=== PATIENT | female | born 1965 | race Asian ===

== ENCOUNTER 2016-10-31 12:33 | Outpatient (CLI) | payer OTHER ==
[2016-10-31 12:48] LABS: PLATELET COUNT 284 K/uL (152-353)
[2016-10-31 13:19] LABS: POTASSIUM 3.9 mmol/L (3.6-5.2); SODIUM 139 mmol/L (136-145)
== END 2016-10-31 19:10 | disposition home or self-care (01) ==
LOC: LAB 12:33
PROVIDERS: Family Medicine
DX: R51 Headache (principal); J32.9 Chronic sinusitis, unspecified; R42 Dizziness and giddiness; M25.562 Pain in left knee; E55.9 Vitamin D deficiency, unspecified; E78.00 Pure hypercholesterolemia, unspecified
CPT/HCPCS: 80053; 80061; 81000; 82306; 83735; 84439; 84443; 84550; 85027

== ENCOUNTER 2016-11-05 14:03 | Outpatient (CLI) | payer OTHER | END 2016-11-05 19:46 | disposition home or self-care (01) | LOC: MRI 14:03 | DX: R51 Headache (principal); M25.562 Pain in left knee; R42 Dizziness and giddiness ==

== ENCOUNTER 2016-11-05 17:16 | Emergency (ER) | payer OTHER ==
[~2016-11-05] VITALS: Ht 162.6 cm; Wt 85.3 kg
[2016-11-05 19:18] VITALS: BP 144/84; TEMP 97.8
== END 2016-11-05 19:23 | disposition home or self-care (01) ==
LOC: ED 17:16
DX: M76.52 Patellar tendinitis, left knee (principal); M76.892 Other specified enthesopathies of left lower limb, excluding foot; M67.462 Ganglion, left knee
CPT/HCPCS: 99283

== ENCOUNTER 2023-02-25 15:38 | Outpatient (CLI) | payer OTHER | END 2023-02-25 22:09 | disposition home or self-care (01) | LOC: US 15:38 | PROVIDERS: ATTEND Orthopaedic Surgery | DX: M25.552 Pain in left hip (principal); M16.12 Unilateral primary osteoarthritis, left hip; M70.62 Trochanteric bursitis, left hip ==